=== PATIENT | male | born 1965 | race Caucasian/White ===

== ENCOUNTER 2022-06-09 14:36 | Emergency (ER) | payer BC, OTHER ==
[~2022-06-09] VITALS: Ht 182.8 cm; Wt 71.7 kg
[~2022-06-09 14:36] MED LIST: DAYPRO600 M1 PO; SKELAXIN800 MG PO
[2022-06-09 15:22] LABS: BASO % 0.3 % (0.0-1.0); EOS % 0.6 % (1.0-4.0); HEMATOCRIT 49.5 % (42.0-52.0); LYMPH % 27.9 % (27.0-41.0); MEAN CELL VOLUME 96.7 fl (80.0-94.0); MEAN CORPUSCULAR HGB 32.8 pg (27.0-31.0); MEAN CORPUSCULAR HGB CONC 33.9 g/dl (33.0-37.0); MEAN PLATELET VOLUME 8.6 fl (9.6-12.3); MONO # 0.6 10*3/uL (0.1-1.0); NEUT # 4.4 10*3/uL (2.3-7.9); NEUT % 61.7 % (47.0-73.0); PLATELET COUNT AUTOMATED 276 10*3/uL (130-400); RED BLOOD COUNT 5.12 10*6/uL (4.50-5.90); RED CELL DISTRI WIDTH 12.6 % (0-14.5); WHITE BLOOD COUNT 7.1 10*3/uL (4.8-10.8)
[2022-06-09 15:44] LABS: ALKALINE PHOSPHATASE 67 U/L (46-116); BUN 25 mg/dl (9-23); CHLORIDE 99 mmol/L (98-107); CREATININE 1.31 mg/dL (0.70-1.30); POTASSIUM 3.4 mmol/L (3.4-5.1); SGPT/ALT 15 U/L (10-49); SODIUM 140 mmol/L (136-145)
[2022-06-09 15:47] LABS: FREE T4 1.35 ng/dl (0.89-1.76); THYROID STIM HORMONE (HS) 0.958 uIU/ml (0.550-4.780)
[2022-06-09 16:02] LABS: ACT PARTIAL THROMBO TIME 24.8 SECONDS (20.0-32.1); INTERNATIONAL NORM RATIO 0.9 (2.0-3.5)
[2022-06-09] MEDS ORDERED: PREDNISONE20 M1 PO (16:51)
[2022-06-09 16:58] LABS: BILIRUBIN Negative (Negative); BLOOD Negative (Negative); CLARITY Clear (Clear); COLOR Yellow (Yellow); GLUCOSE Negative (Negative); KETONE Trace (Negative); LEUKO ESTERASE Negative (Negative); NITRITE Negative (Negative); SPECIFIC GRAVITY >= 1.030 (1.001-1.030); UROBILINOGEN 0.2 E.U./dl (0.0-1.0)
[2022-06-09 17:11] LABS: RBC 0-2 rbc/hpf (0-2); WBC 0-2 wbc/hpf (0-5)
== END 2022-06-09 17:10 | disposition home or self-care (01) ==
LOC: ED 14:36
PROVIDERS: Student in an Organized Health Care Education/Training Program
DX: R06.02 Shortness of breath (principal); Z20.822 Contact with and (suspected) exposure to COVID-19; Z88.1 Allergy status to other antibiotic agents; Z88.8 Allergy status to other drugs, medicaments and biological substances